=== PATIENT | male | born 1990 | race American Indian/Alaskan Native ===

== ENCOUNTER → 2017-09-22 17:42 | Emergency (ER) | payer SELFPAY | END | disposition left against medical advice (07) | LOC: ED 17:42 | DX: M54.9 Dorsalgia, unspecified (principal); Z53.21 Procedure and treatment not carried out due to patient leaving prior to being seen by health care provider ==

== ENCOUNTER 2017-10-03 04:41 | Emergency (ER) | payer SELFPAY ==
[2017-10-03 04:49] VITALS: BP 121/74
[2017-10-03] MEDS ORDERED: MOTRIN ONE (05:18)
[2017-10-03] MEDS ORDERED: MOTRIN PO ONE (05:37)
--- NOTE | 2017-10-03 06:34 | XRay Report ---
FINAL REPORT PROCEDURE: XR SPINE CERVICAL 2-3V TECHNIQUE: Cervical spine radiographs, AP, lateral, and open-mouth odontoid views. CPT 35946 HISTORY: neck pain COMPARISON: No prior studies are available for comparison. FINDINGS: Prevertebral soft tissues: Normal . Alignment: Normal . Vertebral body heights/Disk spaces: There is no significant loss of disc height. Fracture(s): None . Facets: Normal . Bone mineralization: Normal . IMPRESSION: There is no fracture or malalignment.
--- NOTE | 2017-10-03 06:35 | XRay Report ---
FINAL REPORT EXAM: XR FOREARM 1V LT HISTORY: Left forearm pain. TECHNIQUE: A single frontal radiograph the left forearm was obtained. No prior studies are available for comparison. FINDINGS: There is very slight cortical irregularity seen at the midshaft of the ulna, along its ulnar aspect. This is possibly related to vascular groove, though the possibility of mild periosteal reaction or posttraumatic change should be considered. There is no discrete fracture line. Correlation with physical exam is recommended. There is no dislocation. No significant soft tissue abnormality is identified. IMPRESSION: Subtle cortical irregularity seen along the midshaft of the ulna, along its ulnar cortical margin. While this may represent vascular groove, the possibility of minimal periosteal reaction or posttraumatic change should be considered (though no discrete fracture line is seen). Correlation with physical exam in this region is recommended. If pain is referable to location, MRI examination is suggested for more definitive evaluation.
--- NOTE | 2017-10-03 06:36 | XRay Report ---
FINAL REPORT PROCEDURE: XR ELBOW 2V LT TECHNIQUE: LEFT elbow radiographs, including AP and lateral views. HISTORY: left elbow pain COMPARISON: No prior studies are available for comparison. FINDINGS: Fracture (s) and/or Dislocation(s): None . Alignment: Normal . Joint space(s): Normal . Soft tissues: Normal . Bone mineralization: Normal . Foreign bodies: None . IMPRESSION: Normal Examination
--- NOTE | 2017-10-03 07:03 | XRay Report ---
FINAL REPORT PROCEDURE: XR HUMERUS 2+V LT TECHNIQUE: LEFT humerus radiographs, AP and lateral views. HISTORY: left humerus COMPARISON: No prior studies are available for comparison. FINDINGS: Fracture (s) and/or Dislocation(s): None . Joint space(s): Normal. Soft tissues: Normal. Bone mineralization: Normal. Foreign bodies: None. IMPRESSION: Normal Examination.
== END 2017-10-03 05:58 | disposition left against medical advice (07) ==
LOC: ED 04:41
DX: M79.602 Pain in left arm (principal); Z53.21 Procedure and treatment not carried out due to patient leaving prior to being seen by health care provider
CPT/HCPCS: 72040

== ENCOUNTER 2018-03-12 04:25 | Emergency (ER) | payer SELFPAY ==
[2018-03-12 04:38] VITALS: BP 118/75
[2018-03-12] MEDS ORDERED: XYLOCAINE 1% MPF 5 mL INFILTRATI ONE (05:15)
[2018-03-12] MEDS ORDERED: ROCEPHIN IM ONE (05:15)
[2018-03-12] MEDS ORDERED: ZITHROMAX PO ONE (05:17)
--- NOTE | 2018-03-12 05:18 | Emergency Department Report ---
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 recently self treated for out break with valcyclovir, no presents for singular lesion left scrotum no penile discharge no penile ucler, no fever no chills no n/v no pelvic pain MD Complaint: groin pain Onset/Timin -: days(s) Location: left testicle Radiation: none Severity: mild Severity scale (0 -10): 4 Quality: burning Consistency: constant Improves with: none Worsens with: none other (ulcer scrotum ) - Related Data Sexually active: Yes Previous Rx's Medication Instructions Recorded Last Taken Type Clindamycin [Clindamycin CAP] 300 mg PO Q8H 10 Days #30 cap 03/12/18 Unknown Rx Valacyclovir HCl [Valtrex] 1,000 mg PO BID #20 tab 03/12/18 Unknown Rx Allergies Allergy/AdvReac Type Severity Reaction Status Date / Time No Known Allergies Allergy Unverified 10/03/17 05:32 ED Review of Systems ROS: Stated complaint: RASH/LEFT LEG Other details as noted in HPI Constitutional: denies: chills, fever Eyes: denies: eye pain, eye discharge, vision change ENT: denies: ear pain, throat pain Respiratory: denies: cough, shortness of breath, wheezing Cardiovascular: denies: chest pain, palpitations Endocrine: no symptoms reported Gastrointestinal: denies: abdominal pain, nausea, diarrhea Genitourinary: testicular pain Musculoskeletal: denies: back pain, joint swelling, arthralgia Skin: lesions. denies: rash Neurological: denies: headache, weakness, paresthesias Psychiatric: denies: anxiety, depression Hematological/Lymphatic: denies: easy bleeding, easy bruising ED Past Medical Hx - Past Medical History Previous Medical History?: No - Surgical History Past Surgical History?: No - Social History Smoking Status: Never Smoker Substance Use Type: None - Medications Home Medications: Home Medications Medication Instructions Recorded Confirmed Last Taken Type Clindamycin [Clindamycin CAP] 300 mg PO Q8H 10 Days #30 cap 03/12/18 Unknown Rx Valacyclovir HCl [Valtrex] 1,000 mg PO BID #20 tab 03/12/18 Unknown Rx ED Physical Exam - General Limitations: No Limitations General appearance: alert, in no apparent distress - Head Head exam: Present: atraumatic, normocephalic - Eye Eye exam: Present: normal appearance - ENT ENT exam: Present: mucous membranes moist - Neck Neck exam: Present: normal inspection - Respiratory Respiratory exam: Present: normal lung sounds bilaterally. Absent: respiratory distress - Cardiovascular Cardiovascular Exam: Present: regular rate, normal rhythm. Absent: systolic murmur, diastolic murmur, rubs, gallop - GI/Abdominal GI/Abdominal exam: Present: soft, normal bowel sounds - Rectal Rectal exam: Present: deferred - External exam: Present: lesions (left scrotum no erythema no fever scant purulent drainage no testicular swelling no discharge ) - Extremities Exam Extremities exam: Present: normal inspection - Back Exam Back exam: Present: normal inspection - Neurological Exam Neurological exam: Present: alert, oriented X3 - Psychiatric Psychiatric exam: Present: normal affect, normal mood - Skin Skin exam: Present: warm, dry, intact, normal color. Absent: rash ED Course Vital Signs 03/12/18 04:34 Temperature 98.1 F Pulse Rate 71 Respiratory 20 Rate Blood Pressure 118/75 O2 Sat by Pulse 98 Oximetry ED Medical Decision Making - Medical Decision Making chancre sore, HSV , abscess scrotum plan: continue acyclovir as rx, Diflucan 150 x 1, clindamycin 300 mg po tid x 10 days, follow up with ID jonah whipple for management of HSV genital pt verbalized agreement and understanding of tx plan. Critical care attestation.: If time is entered above; I have spent that time in minutes in the direct care of this critically ill patient, excluding procedure time. ED Disposition Clinical Impression: Genital chancre Genital HSV Qualifiers: Herpes simplex infection site: other site of male genital organs Qualified Code (s): A60.02 - Herpesviral infection of other male genital organs Disposition: - TO HOME OR SELFCARE Is pt being admited?: No Does the pt Need Aspirin: No Condition: Good Instructions: Genital Herpes Simplex (ED) Prescriptions: Clindamycin [Clindamycin CAP] 300 mg PO Q8H 10 Days #30 cap Valacyclovir HCl [Valtrex] 1,000 mg PO BID #20 tab Referrals: DOMINIQUE SHARIF MD [Staff Physician] - 3-5 Days Forms: Work/School Release Form(ED) Time of Disposition: 05:35
== END 2018-03-12 06:20 | disposition home or self-care (01) ==
LOC: ED 04:25
DX: A60.02 Herpesviral infection of other male genital organs (principal)
CPT/HCPCS: 96372; 99282; J0696